=== PATIENT | female | born 1980 | race Two or more races ===

== ENCOUNTER → 2017-07-06 | Outpatient (CLI) | payer OTHER ==
--- NOTE | ~2017-07-06 | US128 ---
[id number] [facility]. [facility] [address] [place], [place] [address] [id number] O MR#: [id number] Acc #: [id number] NAME: MARIO ADDISON : 1980 SEX: F STUDY DATE/TIME: 07/06/2017 15:42 UNIT: [facility]US ROOM: STUDY DESCRIPTION: Thyroid Attending Physician: Cuong Sales M.D. Referring Physician: Cuong Sales M.D. Ordering Physician: Cuong Sales M.D. Primary Care Physician: Cuong Sales M.D. MEDICAL IMAGING REPORT This report is preliminary unless electronic signature is present EXAM Thyroid ultrasound. HISTORY History of thyroid nodule identified incidentally on outside MRI. FINDINGS In the right lobe of the gland, there is a midpole hypoechoic 7 x 5 x 9-mm nodule. In the lower pole, mostly cystic, slightly complex 6 x 10 x 5-mm nodule. On the left, there is a dominant lower pole mixed cystic and solid nodule measuring 2.2 x 1.3 x 1.9 cm, and a midpole solid-appearing 1.4 x 0.7 x 1.4-cm nodule and a mostly cystic lesion laterally in the midpole of the gland, measured at about 1.5 x 0.7 x 0.7 cm. IMPRESSION 1. Bilateral thyroid nodules. Lesions on the right are unremarkable in appearance and within normal limits for size. 2. There is a mostly cystic lesion on the left in the midpole laterally, measuring about 1.5 x 0.7 x 0.7 cm, without any suspicious features. There is a dominant lower pole mostly cystic, but partially solid nodule, measuring 2.2 x 1.3 x 1.9 cm, which would be easily amenable to ultrasound-guided needle aspiration and a mostly solid 1.4 x 0.7 x 1.4-cm midpole nodule which would also be easily amenable to ultrasound-guided needle aspiration. Dictated by... Shad Cuello M.D. THIS IS AN ELECTRONICALLY VERIFIED REPORT Shad Cuello M.D. at 07/10/2017 4:52 PM RODRIGO/tia TD: 07/07/2017 14:06 JOB #: [id number] MEDICAL IMAGING REPORT Page 1 of 1 COPY
== END | disposition home or self-care (01) ==
LOC: CGUS 14:52
DX: E04.1 Nontoxic single thyroid nodule (principal); E04.2 Nontoxic multinodular goiter; E07.89 Other specified disorders of thyroid
CPT/HCPCS: 76536